=== PATIENT | female | born 1970 | race Caucasian/White ===

== ENCOUNTER 2019-05-10 10:27 | Emergency (ER) | payer MEDICARE ==
[~2019-05-10] VITALS: Ht 170 cm; Wt 107.0 kg
[2019-05-10] MEDS ORDERED: NS IV 1000 ML 1,000 ML IV SCH (11:04)
[2019-05-10] MEDS ORDERED: KETOROLAC 30 MG/ML VIAL IVP STA (11:04)
[2019-05-10] MEDS ORDERED: ONDANSETRON 4 MG/2 ML (SDV) Z0FRAN IVP ONE (11:15)
--- NOTE | 2019-05-10 11:16 | ED GI ---
General Chief Complaint: Abdominal/GI Problems Stated Complaint: PAIN IN RIGHT SIDE, TROUBLE URINATING Nursing Triage Note: patient verbalized since 0300, states rt sided abdominal pain, states feels urge to urinate, but unable to. states vomitted x2 Sepsis Screen: No Definite Risk History of Present Illness Date Seen by Provider: May 10, 2019 Time Seen by Provider: 11:00 Initial Comments 48-year-old female presents for pain in her right lower abdomen and flank that began at approximately 0430 today. She is rating her pain at a 10 over 10. She has no history of previous kidney stones. She reports difficulty urinating. She did vomit 2 times prior to arrival. She has not taken anything for pain or nausea. She's had a partial hysterectomy in the past, however she does have a history of ovarian cysts. No other previous Abdominal surgeries. No hx of urolithiasis. Her PCP is at [facility] in [place]. Timing/Duration: 4-6 Hours Severity/Quality: Moderate Location: RLQ, Flank (Right ) Radiation: No Radiation Associated Symptoms: Denies Symptoms, Back Pain (Chronic); No Chest Pain, No Diaphoresis, No Fever/Chills, No Fatigue, No Headache, No Heartburn; Nausea/Vomiting; No Rash, No Shortness of Air, No Swelling/Mass in Abdomen, No Syncope, No Weakness, No Other Allergies and Home Medications Allergies Coded Allergies: morphine (Unverified Allergy, Mild, Vomiting, 05/10/19) Penicillins (Unverified Allergy, Unknown, 08/12/06) Home Medications Nitrofurantoin Monohyd/M-Cryst 100 Mg Capsule, 1 TAB PO BID Prescribed by: KVNG ABARCA on 05/10/19 1509 Ondansetron 4 Mg Tab.rapdis, 8 MG PO Q6H PRN for NAUSEA/VOMITING Prescribed by: KVNG ABARCA on 05/10/19 1509 Oxycodone HCl/Acetaminophen 1 Each Tablet, 1 EACH PO Q4H PRN for PAIN-SEVERE Prescribed by: KVNG ABARCA on 05/10/19 1509 Patient Home Medication List Home Medication List Reviewed: Yes Review of Systems Review of Systems Constitutional: no symptoms reported, see HPI Gastrointestinal: See HPI, Abdominal Pain; Denies Constipated (BM at 0300 today), Denies Diarrhea; Nausea, Vomiting Genitourinary: See HPI, Frequency, Pain All Other Systems Reviewed Negative Unless Noted: Yes Past Rekzxpn-Kqjupj-Jecekm Hx Past Med/Social Hx: Reviewed Nursing Past Med/Soc Hx Patient Social History Recent Foreign Travel: No Contact w/Someone Who Travel: No Recent Infectious Disease Expo: No Physical Exam Vital Signs Vital Signs - First Documented 05/10/19 10:51 Temp 36.4 Pulse 83 Resp 18 B/P (MAP) 134/85 (101) Pulse Ox 98 O2 Delivery Room Air Capillary Refill : Less Than 3 Seconds Height/Weight/BMI Height: '" Weight: lbs. oz. kg; 37.00 BMI Method: General Appearance: WD/WN, no apparent distress HEENT: PERRL/EOMI, normal ENT inspection, TMs normal, pharynx normal, other (oral mucosa pink and moist) Neck: non-tender, full range of motion, supple, normal inspection Respiratory: chest non-tender, lungs clear, normal breath sounds Cardiovascular: normal peripheral pulses, regular rate, rhythm, no murmur Gastrointestinal: normal bowel sounds, soft, no pulsatile mass; No distended, No guarding, No rebound; tenderness (to palpation in the right lower quadrant and percussion in the right flank) Back: normal inspection, no vertebral tenderness, CVA tenderness (R) Neurologic/Psychiatric: no motor/sensory deficits, alert, normal mood/affect, oriented x 3 Skin: normal color, warm/dry; No jaundice, No pallor, No rash Lymphatic: no adenopathy Progress/Results/Core Measures Results/Orders Lab Results Laboratory Tests Test 05/10/19 11:05 Range/Units White Blood Count 16.2 H 4.3-11.0 10^3/uL Red Blood Count 4.96 4.35-5.85 10^6/uL Hemoglobin 15.3 11.5-16.0 G/DL Hematocrit 45 35-52 % Mean Corpuscular Volume 91 80-99 FL Mean Corpuscular Hemoglobin 31 25-34 PG Mean Corpuscular Hemoglobin Concent 34 32-36 G/DL Red Cell Distribution Width 13.9 10.0-14.5 % Platelet Count 314 130-400 10^3/uL Mean Platelet Volume 10.2 7.4-10.4 FL Neutrophils (%) (Auto) 83 H 42-75 % Lymphocytes (%) (Auto) 10 L 12-44 % Monocytes (%) (Auto) 7 0-12 % Eosinophils (%) (Auto) 0 0-10 % Basophils (%) (Auto) 0 0-10 % Neutrophils # (Auto) 13.4 H 1.8-7.8 X 10^3 Lymphocytes # (Auto) 1.6 1.0-4.0 X 10^3 Monocytes # (Auto) 1.1 H 0.0-1.0 X 10^3 Eosinophils # (Auto) 0.0 0.0-0.3 10^3/uL Basophils # (Auto) 0.0 0.0-0.1 10^3/uL Neutrophils % (Manual) 82 % Lymphocytes % (Manual) 9 % Monocytes % (Manual) 7 % Basophils % (Manual) 1 % Band Neutrophils 1 % Urine Color YELLOW Urine Clarity SL CLOUDY Urine pH 5.5 5-9 Urine Specific Duncan >=1.030 1.016-1.022 Urine Protein NEGATIVE NEGATIVE Urine Glucose (UA) NEGATIVE NEGATIVE Urine Ketones NEGATIVE NEGATIVE Urine Nitrite NEGATIVE NEGATIVE Urine Bilirubin NEGATIVE NEGATIVE Urine Urobilinogen 0.2 < = 1.0 MG/DL Urine Leukocyte Esterase NEGATIVE NEGATIVE Urine RBC (Auto) 1+ H NEGATIVE Urine RBC 2-5 H /HPF Urine WBC RARE /HPF Urine Squamous Epithelial Cells >50 H /HPF Urine Crystals NONE /LPF Urine Amorphous Sediment RARE MAURILIO URATES H /LPF Urine Bacteria MODERATE H /HPF Urine Casts PRESENT /LPF Urine Hyaline Casts RARE /LPF Urine Mucus NEGATIVE /LPF Urine Culture Indicated YES Sodium Level 137 135-145 MMOL/L Potassium Level 4.3 3.6-5.0 MMOL/L Chloride Level 105 98-107 MMOL/L Carbon Dioxide Level 23 21-32 MMOL/L Anion Gap 9 5-14 MMOL/L Blood Urea Nitrogen 14 7-18 MG/DL Creatinine 0.96 0.60-1.30 MG/DL Estimat Glomerular Filtration Rate > 60 BUN/Creatinine Ratio 15 Glucose Level 119 H 70-105 MG/DL Calcium Level 9.5 8.5-10.1 MG/DL Corrected Calcium 8.5-10.1 MG/DL Total Bilirubin 0.3 0.1-1.0 MG/DL Aspartate Amino Transf (AST/SGOT) 17 5-34 U/L Alanine Aminotransferase (ALT/SGPT) 22 0-55 U/L Alkaline Phosphatase 95 40-136 U/L Total Protein 7.4 6.4-8.2 GM/DL Albumin 4.6 H 3.2-4.5 GM/DL My Orders Orders - KVNG ABARCA Ed Iv/Invasive Line Start (05/10/19 11:04) Ns Iv 1000 Ml (Sodium Chloride 0.9%) (05/10/19 11:04) Ondansetron Injection (Zofran Injectio (05/10/19 11:15) Ketorolac Injection (Toradol Injection) (05/10/19 11:04) Cbc With Automated Diff (05/10/19 11:46) Comprehensive Metabolic Panel (05/10/19 11:46) Ct Abd/Pelvis Wo(Kidney Stone) (05/10/19 11:54) Manual Differential (05/10/19 11:05) Phenazopyridine Tablet (Pyridium Tablet) (05/10/19 12:15) Ceftriaxone For Iv Use (Rocephin For I (05/10/19 13:00) Us Non Ob Pelvis Comp/Transvag (05/10/19 13:14) Oxycodone/Apap 5/325mg Tablet (Percocet (05/10/19 15:15) Medications Given in ED Current Medications Medications Dose Ordered Sig/Kady Route Start Time Stop Time Status Last Admin Dose Admin Ceftriaxone Sodium 1000 mg/ Sterile Water 10 ml @ 200 mls/hr ONCE ONCE IV 05/10/19 13:00 05/10/19 13:02 DC 05/10/19 13:02 200 MLS/HR Ondansetron HCl 8 mg ONCE ONCE IVP 05/10/19 11:15 05/10/19 11:16 DC 05/10/19 11:23 8 MG Oxycodone/ Acetaminophen 1 tab ONCE ONCE PO 05/10/19 15:15 05/10/19 15:16 DC 05/10/19 15:19 1 TAB Phenazopyridine HCl 100 mg ONCE ONCE PO 05/10/19 12:15 05/10/19 12:31 DC 05/10/19 12:36 100 MG Vital Signs/I&O 05/10/19 05/10/19 10:51 15:26 Temp 36.4 36.4 Pulse 83 83 Resp 18 18 B/P (MAP) 134/85 (101) 134/85 (101) Pulse Ox 98 98 O2 Delivery Room Air Room Air Blood Pressure Mean: 101 Progress Progress Note : Time: 11:00 Progress Note Patient seen and evaluated, will obtain labs, normal saline 1 L per IV, Zofran 8 mg for nausea, Toradol 30 mg IV for pain. Pending lab results will determine if any diagnostic imaging needs to be completed. 1150 Patient reports pain has improved and no further n/v. Will obtain CT abd/pelvis for elevated WBC and UTI. Patient has urinated 2 times, but small amounts and doesn't feel she can fully empty her bladder. Pyridium [address] results reviewed with Dr. Mcgee and Radiologist, concern for mass on left ovary. Will obtain an ultrasound of the pelvis. Plans discussed with the patient, she was agreeable. Her pain has continued to be resolved. Rocephin 1 g IV. 1330 ultrasound results show cyst versus mass on the left ovary. Recommended follow-up in 4-6 weeks. These results were discussed with the patient. She can have this scheduled on an outpatient basis by her primary care provider. 1400 patient reports lower abdominal pain is returning, will give hydrocodon e/APAP5/325 mg[address] Solano, agreed with treatment, will see patient at 2:00 tomorrow. 1450 patient reports pain is tolerable. Agreeable with discharge plan. Understands importance of follow-up with Dr. Solano tomorrow and repeat ultrasound in 4-6 weeks. Discharge instructions and return precautions reviewed with her. All questions answered Diagnostic Imaging Diagonstic Imaging: CT Plain Films/CT/US/NM/MRI: abdomen, pelvis Comments NAME: YOLANDA DOWNING [facility] REC#: [id number] PT STATUS: REG ER : 1970 PHYSICIAN: KVNG ABARCAP ADMIT DATE: 05/10/19/ER Signed Date of Exam:05/10/19 CT ABD/PELVIS WO(KIDNEY STONE) CT ABD/PELVIS WO(KIDNEY STONE) TECHNIQUE: Unenhanced CT imaging of the abdomen and pelvis was performed. 2-D reformats are created and submitted for interpretation. Automatic exposure controls were utilized to optimize patient dose. INDICATION: Right flank pain radiating to groin. COMPARISON: None available. FINDINGS: Evaluation of the abdominal viscera is mildly limited without contrast. Lower chest: The lung bases are clear. No pericardial or pleural effusion. Peritoneum: No free intraperitoneal air or fluid. Liver and biliary system: There is a 1.5 x 1.5 cm indeterminate hypodense lesion in the posterior hepatic dome on the right. No additional focal hepatic lesion is appreciated. The gallbladder is normal. No biliary duct dilation. Spleen and Pancreas: Spleen is normal. Unenhanced pancreas is grossly normal. Adrenals: Normal. tract: Mild right hydronephrosis and hydroureter due to a 3 mm obstructing stone at the right UVJ. No left renal or ureteral stones. Urinary bladder is decompressed, limiting assessment. Hysterectomy has likely been performed. Probable left ovarian mixed solid and cystic mass measuring 2.8 x 3.1 cm. Right ovary is normal in appearance. GI tract: Stomach is decompressed. No bowel obstruction. No pericolonic inflammatory changes. Normal appendix. Vasculature and Lymph nodes: Normal caliber aorta with scattered calcified plaques. No abdominal or pelvic lymphadenopathy. Musculoskeletal: No concerning osseous lesion. IMPRESSION: 1. Mild right hydronephrosis due to a 3 mm obstructing stone at the right UVJ. 2. Mixed solid and cystic left ovarian mass may represent a physiologic follicle with normal ovarian stroma. Advise a follow-up nonemergent pelvic ultrasound in 6 weeks for reassessment 3. Indeterminate hypodense lesion in the posterior aspect of the liver should have further evaluation with a nonemergent CT abdomen according to liver protocol with and without IV contrast. Dictated by: Dictated on workstation # [id number] Dict: 05/10/19 1246 Trans: 05/10/19 1254 [facility] [id number] Interpreted by: HOMA MCKENZIE MD Electronically signed by: HOMA MCKENZIE MD 05/10/19 1254 Diagonstic Imaging: Ultrasound Plain Films/CT/US/NM/MRI: pelvis Comments NAME: YOLANDA DOWNING [facility] REC#: [id number] PT STATUS: REG ER : 1970 PHYSICIAN: KVNG ABARCA ADMIT DATE: 05/10/19/ER Draft Date of Exam:05/10/19 US NON OB PELVIS COMP/TRANSVAG PROCEDURE: US Non-ob pelvis comp/trans. TECHNIQUE: Multiple real-time grayscale images were obtained of the pelvis in various projections endovaginally. Transabdominal imaging was also performed. INDICATION: Right-sided pain, left ovarian mass. COMPARISON: CT from the same date. FINDINGS: The uterus is not visualized, surgically absent. The right ovary measures 2.7 x 1.4 x 1.7 cm. The right ovary is unremarkable. Vascular flow is seen within the right ovary. A septated cystic structure is noted within the left ovary. This measures up to 4.7 x 3.0 cm. Vascular flow is noted within the left ovary. No significant free fluid. IMPRESSION: 4.7 cm thinly septated left ovarian cystic lesion. Although this may simply relate to several adjacent dominant follicles/functional cysts, cystic neoplasm is not excluded. Therefore, follow-up ultrasound is recommended in 6-8 weeks to reevaluate. Hysterectomy. The right ovary is unremarkable. Dictated on workstation # [id number] Dict: 05/10/19 1423 Trans: 05/10/19 1431 [id number] Interpreted by: ALONDRA VERDIN MD Electronically signed by: Reviewed: Reviewed by Me Departure Impression Primary Impression: Right sided abdominal pain Additional Impressions: Urolithiasis Qualified Codes: N20.2 - Calculus of kidney with calculus of ureter Mass of left ovary Disposition: 01 HOME, SELF-CARE Condition: Improved Departure-Patient Inst. Decision time for Depature: 14:50 Patient Instructions: Kidney Stones (DC), Ovarian Cyst (DC) Add. Discharge Instructions: Increase water and caffeine intake, 16 ounces every 2 hours while awake. You have been scheduled for a follow-up appointment with Dr. Solano tomorrow at 2:00 (05/11/19). [phone], call if you need to change your appt. You may take ibuprofen 600 mg every 8 hours as needed for pain or inflammation. Use the oxycodone for more severe pain that is not managed by the ibuprofen. Use the Zofran every 6-8 hours as needed for nausea or vomiting. Strain your urine. If you get a stone, take it to your appt with Dr. Solano. Follow up with your Primary Care Provider in 4 weeks to have outpatient Ultrasound Repeated to evaluate left ovary, the studies here showed a mass or cyst and must be followed up with, to rule out ovarian cancer. Return to the emergency department for fever greater than 100 not relieved by ibuprofen, pain not managed with the prescriptions are provided, or new, urgent health care needs. All discharge instructions reviewed with patient and/or family. Voiced understanding. Scripts Oxycodone HCl/Acetaminophen (Oxycodone-Acetaminophen 5-325) 1 Each Tablet 1 EACH PO Q4H PRN for PAIN-SEVERE MDD 6, #20 TAB 0 Refills Prov: KVNG ABARCA 05/10/19 Nitrofurantoin Monohyd/M-Cryst (Macrobid 100 mg Capsule) 100 Mg Capsule 1 TAB PO BID, #10 CAP 0 Refills Prov: KVNG ABARCA 05/10/19 Ondansetron (Ondansetron Odt) 4 Mg Tab.rapdis 8 MG PO Q6H PRN for NAUSEA/VOMITING, #12 TAB 0 Refills Prov: KVNG ABARCA 05/10/19 Copy Copies To 1: DO SOLANO MD Copies To 2: BRENDAN JACQUES MD, AMY ARNP May 10, 2019 11:16
[2019-05-10 11:38] LABS: BILIRUBIN,URINE NEGATIVE (NEGATIVE); CLARITY,URINE SL CLOUDY; COLOR,URINE YELLOW; GLUCOSE, URINE (UA) NEGATIVE (NEGATIVE); KETONES,URINE NEGATIVE (NEGATIVE); LEUKOCYTE ESTERASE ,URINE NEGATIVE (NEGATIVE); NITRITE,URINE NEGATIVE (NEGATIVE); PH,URINE 5.5 (5-9); PROTEIN,URINE NEGATIVE (NEGATIVE)
[2019-05-10 11:51] LABS: BACTERIA,URINE MODERATE /HPF; BASOPHILS % (AUTO) 0 % (0-10); EOSINOPHILS % (AUTO) 0 % (0-10); HEMATOCRIT 45 % (35-52); HEMOGLOBIN 15.3 G/DL (11.5-16.0); HYALINE CASTS, URINE RARE /LPF; LYMPHOCYTES # (AUTO) 1.6 X 10^3 (1.0-4.0); LYMPHOCYTES % (AUTO) 10 % (12-44); MEAN CORPUSCULAR HEMOGLOBIN 31 PG (25-34); MEAN CORPUSCULAR HGB CONC 34 G/DL (32-36); MEAN CORPUSCULAR VOLUME 91 FL (80-99); MEAN PLATELET VOLUME 10.2 FL (7.4-10.4); MONOCYTES # (AUTO) 1.1 X 10^3 (0.0-1.0); MONOCYTES % (AUTO) 7 % (0-12); NEUTROPHILS # (AUTO) 13.4 X 10^3 (1.8-7.8); NEUTROPHILS % (AUTO) 83 % (42-75); PLATELET COUNT 314 10^3/uL (130-400); RED CELL DISTRIBUTION WIDTH 13.9 % (10.0-14.5); SQUAMOUS EPITHELIAL CELL,UR >50 /HPF; WBC,URINE RARE /HPF; WHITE BLOOD COUNT 16.2 10^3/uL (4.3-11.0)
[2019-05-10 11:52] LABS: AMORPHOUS SEDIMENT,UR RARE AMOR URATES /LPF
[2019-05-10 12:05] LABS: ALANINE AMINOTRANSFERASE 22 U/L (0-55); ALBUMIN 4.6 GM/DL (3.2-4.5); ALKALINE PHOSPHATASE 95 U/L (40-136); BILIRUBIN,TOTAL 0.3 MG/DL (0.1-1.0); BUN/CREATININE RATIO 15; CALCIUM 9.5 MG/DL (8.5-10.1); CARBON DIOXIDE 23 MMOL/L (21-32); CHLORIDE 105 MMOL/L (98-107); CREATININE SERUM 0.96 MG/DL (0.60-1.30); GFR ESTIMATED > 60; GLUCOSE 119 MG/DL (70-105); POTASSIUM 4.3 MMOL/L (3.6-5.0); SODIUM 137 MMOL/L (135-145); TOTAL PROTEIN 7.4 GM/DL (6.4-8.2)
[2019-05-10 12:13] LABS: BAND NEUTROPHILS 1 %; BASOPHILS % (MANUAL) 1 %; LYMPHOCYTES % (MANUAL) 9 %; MONOCYTES % (MANUAL) 7 %; NEUTROPHILS % (MANUAL) 82 %
[2019-05-10] MEDS ORDERED: PHENAZOPYRIDINE 100 MG (PYRIDIUM) TABLET PO ONE (12:15)
--- NOTE | 2019-05-10 12:54 | Diagnostic Imaging Report ---
CT ABD/PELVIS WO(KIDNEY STONE) TECHNIQUE: Unenhanced CT imaging of the abdomen and pelvis was performed. 2-D reformats are created and submitted for interpretation. Automatic exposure controls were utilized to optimize patient dose. INDICATION: Right flank pain radiating to groin. COMPARISON: None available. FINDINGS: Evaluation of the abdominal viscera is mildly limited without contrast. Lower chest: The lung bases are clear. No pericardial or pleural effusion. Peritoneum: No free intraperitoneal air or fluid. Liver and biliary system: There is a 1.5 x 1.5 cm indeterminate hypodense lesion in the posterior hepatic dome on the right. No additional focal hepatic lesion is appreciated. The gallbladder is normal. No biliary duct dilation. Spleen and Pancreas: Spleen is normal. Unenhanced pancreas is grossly normal. Adrenals: Normal. tract: Mild right hydronephrosis and hydroureter due to a 3 mm obstructing stone at the right UVJ. No left renal or ureteral stones. Urinary bladder is decompressed, limiting assessment. Hysterectomy has likely been performed. Probable left ovarian mixed solid and cystic mass measuring 2.8 x 3.1 cm. Right ovary is normal in appearance. GI tract: Stomach is decompressed. No bowel obstruction. No pericolonic inflammatory changes. Normal appendix. Vasculature and Lymph nodes: Normal caliber aorta with scattered calcified plaques. No abdominal or pelvic lymphadenopathy. Musculoskeletal: No concerning osseous lesion. IMPRESSION: 1. Mild right hydronephrosis due to a 3 mm obstructing stone at the right UVJ. 2. Mixed solid and cystic left ovarian mass may represent a physiologic follicle with normal ovarian stroma. Advise a follow-up nonemergent pelvic ultrasound in 6 weeks for reassessment 3. Indeterminate hypodense lesion in the posterior aspect of the liver should have further evaluation with a nonemergent CT abdomen according to liver protocol with and without IV contrast. Dictated by: Dictated on workstation # [id number]
[2019-05-10] MEDS ORDERED: cefTRIAXone FOR IV USE 1,000 MG in WATER (STERILE) FOR INJECTION 10 ML IV ONE (13:00)
--- NOTE | 2019-05-10 14:31 | Diagnostic Imaging Report ---
PROCEDURE: US Non-ob pelvis comp/trans. TECHNIQUE: Multiple real-time grayscale images were obtained of the pelvis in various projections endovaginally. Transabdominal imaging was also performed. INDICATION: Right-sided pain, left ovarian mass. COMPARISON: CT from the same date. FINDINGS: The uterus is not visualized, surgically absent. The right ovary measures 2.7 x 1.4 x 1.7 cm. The right ovary is unremarkable. Vascular flow is seen within the right ovary. A septated cystic structure is noted within the left ovary. This measures up to 4.7 x 3.0 cm. Vascular flow is noted within the left ovary. No significant free fluid. IMPRESSION: 4.7 cm thinly septated left ovarian cystic lesion. Although this may simply relate to several adjacent dominant follicles/functional cysts, cystic neoplasm is not excluded. Therefore, follow-up ultrasound is recommended in 6-8 weeks to reevaluate. Hysterectomy. The right ovary is unremarkable. Dictated by: Dictated on workstation # [id number]
[2019-05-10] MEDS ORDERED: HYDROcodone/APAP 5 MG/325 MG (LORTAB) TAB PO ONE (15:00)
[2019-05-10] MEDS ORDERED: OXYC-471 PO (15:09)
[2019-05-10] MEDS ORDERED: ONDA4TAB11 PO (15:09)
[2019-05-10] MEDS ORDERED: NITR-65 PO (15:09)
[2019-05-10] MEDS ORDERED: oxyCODONE/APAP 5/325MG (PERCOCET 5) TABLET PO ONE (15:15)
[2019-05-10 15:26] VITALS: BP 134/85
== END 2019-05-10 15:30 | disposition home or self-care (01) ==
LOC: EDUNIT# 10:27 → ER 10:31
DX: N13.2 Hydronephrosis with renal and ureteral calculous obstruction (principal); N83.8 Other noninflammatory disorders of ovary, fallopian tube and broad ligament; Z87.442 Personal history of urinary calculi; Z90.711 Acquired absence of uterus with remaining cervical stump; Z88.0 Allergy status to penicillin; Z88.5 Allergy status to narcotic agent
CPT/HCPCS: 36415; 74176; 76830; 76856; 80053; 81000; 85007; 85027; 87088

== ENCOUNTER 2022-07-19 13:42 | Emergency (ER) | payer MEDICARE ==
[~2022-07-19] VITALS: Ht 170 cm; Wt 99.0 kg
[~2022-07-19 13:42] MED LIST: NITR-65 PO; ONDA4TAB11 PO; OXYC1TAB11 PO
--- NOTE | 2022-07-19 13:59 | ED GU-Female ---
General Chief Complaint: - Reproductive Stated Complaint: UTI Source: patient Exam Limitations: no limitations (MIGUEL ENGLISH) History of Present Illness Date Seen by Provider: Jul 19, 2022 Time Seen by Provider: 13:57 Initial Comments Patient is a 51-year-old female who presents the ED with urinary symptoms. U rinary symptoms started last Thursday. She reports dark urine with a odor. She states she has pressure at the end of her urination. She reports subjective fever over the first 2 or 3 days. She states she vomited on Thursday and Thursday 2 different times when she ate tomatoes. Anything acidic she tend to vomit. Started having increased appetite over the past few days. Was able to eat crackers, drink cranberry juice and vanilla 7 up with improvement. She denies of any specific abdominal pain, chest pain, cough or shortness of breath, headache, dizziness. Last urinary tract infection was several years ago. She does report some bilateral flank discomfort. History of kidney stones. (MIGUEL ENGLISH) Allergies and Home Medications Allergies Coded Allergies: morphine (Unverified Allergy, Mild, Vomiting, 05/10/19) Penicillins (Unverified Allergy, Unknown, 08/12/06) Patient Home Medication List Home Medication List Reviewed: Yes (MIGUEL ENGLISH) Cephalexin (Cephalexin) 500 Mg Tablet, 500 MG PO BID Prescribed by: LEANNA AVALOS on 07/19/22 1435 Nitrofurantoin Monohyd/M-Cryst (Macrobid 100 mg Capsule) 100 Mg Capsule, 1 TAB PO BID Prescribed by: KVNG ABARCA on 05/10/19 1509 Ondansetron (Ondansetron Odt) 4 Mg Tab.rapdis, 8 MG PO Q6H PRN for NAUSEA/VOMITING Prescribed by: KVNG ABARCA on 05/10/19 1509 Oxycodone HCl/Acetaminophen (Oxycodone-Acetaminophen 5-325) 1 Each Tablet, 1 EACH PO Q4H PRN for PAIN-SEVERE Prescribed by: KVNG ABARCA on 05/10/19 1509 Potassium Chloride (Potassium Chloride) 20 Meq Tablet.er, 20 MEQ PO BID Prescribed by: LEANNA AVALOS on 07/19/22 1504 Review of Systems Review of Systems Constitutional: No chills, No diaphoresis; fever; No malaise, No weakness EENTM: No blurred vision, No double vision Respiratory: No cough, No dyspnea on exertion Cardiovascular: No chest pain, No edema Gastrointestinal: No abdominal pain, No constipation, No diarrhea; nausea, vomiting Genitourinary: denies burning, denies discharge, denies dysuria, denies frequency; flank pain, hematuria Musculoskeletal: No back pain, No joint pain Skin: No change in color, No change in hair/nails Psychiatric/Neurological: Denies Anxiety, Denies Depressed (MIGUEL ENGLISH) All Other Systemes Reviewed Negative Unless Noted: Yes (MIGUEL ENGLISH) Past Axksngm-Kcjyco-Bwetrd Hx Past Medical History Surgeries: No Respiratory: No Cardiac: No Neurological: No Genitourinary: No Gastrointestinal: No Musculoskeletal: No Endocrine: No HEENT: No Cancer: No Psychosocial: No Integumentary: No Blood Disorders: No (MIGUEL ENGLISH) Physical Exam Vital Signs Vital Signs - First Documented 07/19/22 13:50 Temp 36.6 Pulse 91 Resp 20 B/P (MAP) 136/65 (88) Pulse Ox 97 O2 Delivery Room Air (MELIDA CABAN MD) Vital Signs Capillary Refill : (MIGUEL ENGLISH) Height, Weight, BMI Height: '" Weight: lbs. oz. kg; 37.00 BMI Method: General Appearance: WD/WN, no apparent distress HEENT: PERRL/EOMI, normal ENT inspection, TMs normal, pharynx normal Neck: non-tender, full range of motion, supple, normal inspection Cardiovascular: regular rate, rhythm, no edema, no gallop, no JVD Respiratory: chest non-tender, lungs clear, normal breath sounds, no respiratory distress, no accessory muscle use Gastrointestinal: normal bowel sounds, non tender, soft, no organomegaly Back: normal inspection, no CVA tenderness, no vertebral tenderness Extremities: normal range of motion, non-tender, normal inspection Neurologic/Psychiatric: merchandise coordinator II-XII nml as tested, no motor/sensory deficits, alert, oriented x 3 Skin: normal color, warm/dry (MIGUEL ENGLISH) Progress/Results/Core Measures Suspected Sepsis SIRS Temperature: Pulse: Respiratory Rate: Laboratory Tests 07/19/22 14:17: White Blood Count 11.6H Blood Pressure / Mean: Laboratory Tests 07/19/22 14:17: Creatinine 0.79, Platelet Count 265, Total Bilirubin 0.4 (MIGUEL ENGLISH) Results/Orders Lab Results Laboratory Tests Test 07/19/22 13:58 07/19/22 14:17 Range/Units Urine Color YELLOW Urine Clarity CLEAR Urine pH 6.0 5-9 Urine Specific [place] 1.010 L 1.016-1.022 Urine Protein 1+ H NEGATIVE Urine Glucose (UA) NEGATIVE NEGATIVE Urine Ketones NEGATIVE NEGATIVE Urine Nitrite NEGATIVE NEGATIVE Urine Bilirubin NEGATIVE NEGATIVE Urine Urobilinogen 2.0 < = 1.0 MG/DL Urine Leukocyte Esterase 2+ H NEGATIVE Urine RBC (Auto) 1+ H NEGATIVE Urine RBC RARE /HPF Urine WBC 50-100 H /HPF Urine Squamous Epithelial Cells 2-5 /HPF Urine Crystals NONE /LPF Urine Bacteria FEW H /HPF Urine Casts NONE /LPF Urine Mucus NEGATIVE /LPF Urine Culture Indicated YES White Blood Count 11.6 H 4.3-11.0 10^3/uL Red Blood Count 4.08 3.80-5.11 10^6/uL Hemoglobin 12.4 11.5-16.0 g/dL Hematocrit 36 35-52 % Mean Corpuscular Volume 89 80-99 fL Mean Corpuscular Hemoglobin 30 25-34 pg Mean Corpuscular Hemoglobin Concent 34 32-36 g/dL Red Cell Distribution Width 13.2 10.0-14.5 % Platelet Count 265 130-400 10^3/uL Mean Platelet Volume 10.6 9.0-12.2 fL Immature Granulocyte % (Auto) 1 % Neutrophils (%) (Auto) 76 H 42-75 % Lymphocytes (%) (Auto) 14 12-44 % Monocytes (%) (Auto) 9 0-12 % Eosinophils (%) (Auto) 1 0-10 % Basophils (%) (Auto) 0 0-10 % Neutrophils # (Auto) 8.8 H 1.8-7.8 10^3/uL Lymphocytes # (Auto) 1.6 1.0-4.0 10^3/uL Monocytes # (Auto) 1.0 0.0-1.0 10^3/uL Eosinophils # (Auto) 0.1 0.0-0.3 10^3/uL Basophils # (Auto) 0.0 0.0-0.1 10^3/uL Immature Granulocyte # (Auto) 0.1 0.0-0.1 10^3/uL Sodium Level 136 135-145 MMOL/L Potassium Level 2.7 L 3.6-5.0 MMOL/L Chloride Level 99 98-107 MMOL/L Carbon Dioxide Level 22 21-32 MMOL/L Anion Gap 15 H 5-14 MMOL/L Blood Urea Nitrogen 11 7-18 MG/DL Creatinine 0.79 0.60-1.30 MG/DL Estimat Glomerular Filtration Rate 91 BUN/Creatinine Ratio 14 Glucose Level 125 H 70-105 MG/DL Calcium Level 9.2 8.5-10.1 MG/DL Corrected Calcium 9.5 8.5-10.1 MG/DL Magnesium Level 2.3 1.6-2.4 MG/DL Total Bilirubin 0.4 0.1-1.0 MG/DL Aspartate Amino Transf (AST/SGOT) 104 H 5-34 U/L Alanine Aminotransferase (ALT/SGPT) 177 H 0-55 U/L Alkaline Phosphatase 203 H 40-136 U/L Total Protein 7.6 6.4-8.2 GM/DL Albumin 3.6 3.2-4.5 GM/DL (MELIDA CABAN MD) Medications Given in ED Current Medications Medications Dose Ordered Sig/Kady Route Start Time Stop Time Status Last Admin Dose Admin Ceftriaxone Sodium 1,000 mg ONCE ONCE IM 07/19/22 14:45 07/19/22 14:46 DC 07/19/22 14:51 1,000 MG Lidocaine HCl 2.1 ml ONCE ONCE INJ 07/19/22 14:45 07/19/22 14:46 DC 07/19/22 14:51 2.1 ML Potassium Chloride 20 meq ONCE ONCE PO 07/19/22 14:45 07/19/22 14:46 DC 07/19/22 15:01 20 MEQ (MELIDA CABAN MD) Vital Signs/I&O 07/19/22 07/19/22 13:50 15:45 Temp 36.6 Pulse 91 80 Resp 20 16 B/P (MAP) 136/65 (88) 136/63 Pulse Ox 97 97 O2 Delivery Room Air Room Air (MELIDA CABAN MD) Vital Signs/I&O Capillary Refill : (MIGUEL ENGLISH) ECG Comment Sinus rhythm 71 bpm, QRS duration 89 MS, QTc 397 MS. (MIGUEL ENGLISH) Departure Communication (PCP) Reviewed previous ER visits, H&P, lab testing. Patient with urinary symptoms. Vomiting earlier this week after eating tomatoes. Those symptoms have improved. She states acidic citrus foods make her want to vomit. Denies history of gastritis or GERD. She has no abdominal pain. Pain after urination. Afebrile. Stable vital signs. Concerning for UTI with her current presentation. She does report some bilateral flank pain. CBC, CMP and urinalysis was ordered. Differential diagnosis of cystitis, pyelonephritis. Urinalysis was positive for urinary tract infection. CBC showed white blood count 11.6. Due to the dark urine concerning for acute kidney injury. Normal kidney function. Potassium 2.7. EKG was ordered to rule out ST depression,, U wave, QT prolongation. EKG with normal sinus rhythm without evidence of ST changes or QT prolongation. Elevated liver enzymes AST 104, ALT 177. No upper abdominal tenderness. Nonsp ecific. she was given a dose of Rocephin here. She was given 20 ml equivalent of oral potassium. Will discharge with Keflex for the next 2 days. Patient recommended continue staying hydrated. Pyridium for discomfort. Recommend recheck with urinalysis in 5 to 6 days. If any worsening symptoms such as fever, chills, worsening urinary symptoms return back to ED. will discharge with oral potassium for the next 2 days. Recheck of potassium in 2 to 3 days. If any worsening symptoms return back to ED. Low potassium may be secondary to the vomiting. No previous history of hypokalemia. Not currently on any diuretics. She did have a slight elevated liver enzyme here. Nonspecific. No right upper quadrant tenderness. Continue monitoring outpatient (MIGUEL ENGLISH) Impression Primary Impression: Urinary tract infection Additional Impression: Hypokalemia Disposition: 01 HOME, SELF-CARE Condition: Stable Departure-Patient Inst. Decision time for Depature: 14:34 (MIGUEL ENGLISH) Referrals: [facility] [place] NO,LOCAL PHYSICIAN (PCP) Primary Care Physician Patient Instructions: Urinary Tract Infection, Adult (DC) Add. Discharge Instructions: Recommend taking potassium as prescribed. recommend recheck of your potassium level in the next 2 to 3 days Recheck your urinalysis with your primary care physician in 5 to 6 days. If any worsening symptoms return back to ED All discharge instructions reviewed with patient and/or family. Voiced understanding. Scripts Potassium Chloride (Potassium Chloride) 20 Meq Tablet.er 20 MEQ PO BID for 2 Days, #4 TAB Prov: MIGUEL ENGLISH 07/19/22 Cephalexin (Cephalexin) 500 Mg Tablet 500 MG PO BID for 7 Days, #14 TAB Prov: MIGUEL ENGLISH 07/19/22 ATTENDING PHYSICIAN NOTE: I was physically present as attending physician in the emergency department during the care of this patient, but I was not directly involved in the decision making or delivery of care for this patient. (MELIDA CABAN MD) MIGUEL ENGLISH Jul 19, 2022 13:59 MELIDA CABAN MD Jul 19, 2022 21:42
[2022-07-19 14:09] LABS: BILIRUBIN,URINE NEGATIVE (NEGATIVE); CLARITY,URINE CLEAR; COLOR,URINE YELLOW; GLUCOSE, URINE (UA) NEGATIVE (NEGATIVE); KETONES,URINE NEGATIVE (NEGATIVE); LEUKOCYTE ESTERASE ,URINE 2+ (NEGATIVE); NITRITE,URINE NEGATIVE (NEGATIVE); PROTEIN,URINE 1+ (NEGATIVE)
[2022-07-19 14:19] LABS: BACTERIA,URINE FEW /HPF; RBC,URINE RARE /HPF; WBC,URINE 50-100 /HPF
[2022-07-19 14:29] LABS: BASOPHILS % (AUTO) 0 % (0-10); EOSINOPHILS # (AUTO) 0.1 10^3/uL (0.0-0.3); EOSINOPHILS % (AUTO) 1 % (0-10); HEMATOCRIT 36 % (35-52); HEMOGLOBIN 12.4 g/dL (11.5-16.0); LYMPHOCYTES # (AUTO) 1.6 10^3/uL (1.0-4.0); LYMPHOCYTES % (AUTO) 14 % (12-44); MEAN CORPUSCULAR HEMOGLOBIN 30 pg (25-34); MEAN CORPUSCULAR HGB CONC 34 g/dL (32-36); MEAN CORPUSCULAR VOLUME 89 fL (80-99); MEAN PLATELET VOLUME 10.6 fL (9.0-12.2); MONOCYTES % (AUTO) 9 % (0-12); NEUTROPHILS # (AUTO) 8.8 10^3/uL (1.8-7.8); NEUTROPHILS % (AUTO) 76 % (42-75); PLATELET COUNT 265 10^3/uL (130-400); WHITE BLOOD COUNT 11.6 10^3/uL (4.3-11.0)
[2022-07-19] MEDS ORDERED: CEPH500T PO (14:35)
[2022-07-19 14:44] LABS: ALBUMIN 3.6 GM/DL (3.2-4.5); POTASSIUM 2.7 MMOL/L (3.6-5.0)
[2022-07-19 14:45] LABS: CALCIUM 9.2 MG/DL (8.5-10.1)
[2022-07-19] MEDS ORDERED: cefTRIAXone 1,000 MG VIAL (for IV or IM) IM ONE (14:45)
[2022-07-19] MEDS ORDERED: KCL 20 MEQ TAB (K-DUR) PO ONE (14:45)
[2022-07-19] MEDS ORDERED: LIDOCAINE 1% INJ 20 ML VIAL INJ ONE (14:45)
[2022-07-19 14:47] LABS: TOTAL PROTEIN 7.6 GM/DL (6.4-8.2)
[2022-07-19 14:48] LABS: BILIRUBIN,TOTAL 0.4 MG/DL (0.1-1.0)
[2022-07-19 14:50] LABS: CREATININE SERUM 0.79 MG/DL (0.60-1.30)
[2022-07-19] MEDS ORDERED: POTA-51 PO (15:04)
[2022-07-19 15:45] VITALS: BP 136/63
== END 2022-07-19 15:45 | disposition home or self-care (01) ==
LOC: EDUNIT# 13:42 → ER 13:45
DX: N39.0 Urinary tract infection, site not specified (principal); E87.6 Hypokalemia; R74.01 Elevation of levels of liver transaminase levels; Z88.0 Allergy status to penicillin; Z87.442 Personal history of urinary calculi; Z28.310 Unvaccinated for COVID-19
CPT/HCPCS: 36415; 80053; 81000; 83735; 85025; 87088; 87186; 93005